=== PATIENT | female | born 1965 | race Caucasian/White ===

== ENCOUNTER 2017-05-27 06:38 | Day surgery (SDC) | payer OTHER ==
[2017-05-27] MEDS ORDERED: Propofol 200 MG/20 ML SDV IV ONE (06:39)
[2017-05-27] MEDS ORDERED: Lactated Ringers 1,000 ML IV SCH (06:45)
[2017-05-27] MEDS ORDERED: Sodium Chloride 0.9% 10 ML Syringe FLUSH PRN (06:45)
--- NOTE | 2017-05-27 08:14 | PCM.HPR ---
H & P Addendum review - H & P Addendum Review Date of Original H & P: 05/03/17 Date Reviewed: 05/27/17 Time Reviewed: 08:00 Patient was Examined: No Changes (ok to proceed with screening colonoscopy)
--- NOTE | 2017-05-27 09:02 | PCM.OPNOTE ---
- General Post-Op/Procedure Note Date of Surgery/Procedure: 05/27/17 Operative Procedure(s): Colonoscopy Findings: normal Pre Op Diagnosis: Colon Screening Post-Op Diagnosis: Same Anesthesia Technique: MAC Primary Surgeon: Ghassan Tierney Pathology: none Complications: None Condition: Good
--- NOTE | 2017-05-27 14:09 | OR ---
DATE OF OPERATION: 05/27/2017 SURGEON: Ghassan Tierney MD PREOPERATIVE DIAGNOSIS: Colon screening. POSTOPERATIVE DIAGNOSIS: Normal colonoscopy. PROCEDURE PERFORMED: Colonoscopy. ANESTHESIA: IV sedation. PROCEDURE IN DETAIL: The patient was brought to the procedure room, where she was placed on her left side and IV sedation administered. Digital rectal exam was performed, which was normal. The colonoscope was inserted and advanced to the level of the hepatic flexure without difficulty. At that time, there was significant looping and I was unable to advance farther. With pressure on the abdomen and changing to the supine position, I could advance into the ascending colon, and again could not advance farther. She is placed back on her left side and I was able to continue into the cecum, which was confirmed by identifying the appendiceal lumen and ileocecal valve. Prep was good and surfaces were well visualized. Upon withdrawing the scope, the ascending, transverse, and descending colon were normal other than being fairly tortuous. The sigmoid colon and rectum were normal. Retroflexion was normal. Air was removed and the scope withdrawn. The patient tolerated the procedure well and returned to recovery in stable condition. She has no family history of colon polyps or colon cancer and thus she can wait 10 years until her next colon screening. /[id number] [email or web address]/[email or web address] CC: Niurka Briceño DNP [facility]
== END 2017-05-27 10:24 | disposition home or self-care (01) ==
LOC: FB.SDS 06:38
PROVIDERS: ATTEND Surgery
DX: Z12.11 Encounter for screening for malignant neoplasm of colon (principal); I10 Essential (primary) hypertension; E78.5 Hyperlipidemia, unspecified; R73.03 Prediabetes; Z79.899 Other long term (current) drug therapy; Z98.51 Tubal ligation status; Z90.710 Acquired absence of both cervix and uterus; Z98.890 Other specified postprocedural states
CPT/HCPCS: 45378; J2704; J7120

== ENCOUNTER 2023-04-22 13:21 | Emergency (ER) | payer OTHER ==
[2023-04-22] MEDS: Ondansetron 4 MG Tab.DIS PO ONE (13:58)
[2023-04-22 14:16] LABS: BASOPHILS PERCENT AUTO 0.2 % (0.2-1.5); EOSINOPHILS PERCENT AUTO 0.1 % (0.6-8.1); HEMATOCRIT 38.4 % (34.2-48.2); HEMOGLOBIN 13.2 g/dL (11.4-15.5); LYMPHOCYTES ABSOLUTE AUTO 0.7 x10-3/uL (1.0-4.4); MEAN CORPUSCULAR HEMOGLOBIN 29.4 pg (23.9-33.9); MEAN CORPUSCULAR HGB CONC 34.3 g/dL (31.9-34.8); MEAN CORPUSCULAR VOLUME 85.8 fL (76.7-100.5); MEAN PLATELET VOLUME 7.3 fL (7.1-12.4); MONOCYTES ABSOLUTE AUTO 0.6 x10-3/uL (0.3-1.0); MONOCYTES PERCENT AUTO 9.9 % (4.4-15.7); NEUTROPHILS ABSOLUTE AUTO 4.8 x10-3/uL (1.5-6.3); NEUTROPHILS PERCENT AUTO 78.8 % (30.8-76.2); PLATELET COUNT,PLT 140 x10(3)uL (151-488); RED BLOOD CELL COUNT 4.48 x10(6)uL (3.60-5.20); WHITE BLOOD CELL COUNT,WBC 6.1 x10-3/uL (3.0-10.3)
[2023-04-22 14:19] LABS: BLOOD UREA NITROGEN,BUN 12 mg/dL (7-18); BUN/CREATININE RATIO 13.3 (9-20); CALCIUM 9.1 mg/dL (8.6-10.2); CARBON DIOXIDE,CO2 29 mmol/L (21-32); CHLORIDE,CL 95 mmol/L (100-110); CREATININE 0.9 mg/dL (0.55-1.02); EST CRCL DRUG DOSING (CG) 53.89 mL/min; ESTIMATED GFR 74 mL/min (>60); GLUCOSE RANDOM 101 mg/dL (80-116); POTASSIUM,K 3.6 mmol/L (3.5-5.3); SODIUM,NA 131 mmol/L (135-145)
== END 2023-04-22 15:02 | disposition home or self-care (01) ==
LOC: FB.ED 13:21
DX: L03.116 Cellulitis of left lower limb (principal); I10 Essential (primary) hypertension; E66.9 Obesity, unspecified; Z68.37 Body mass index [BMI] 37.0-37.9, adult; Z88.8 Allergy status to other drugs, medicaments and biological substances; Z79.899 Other long term (current) drug therapy; Z90.710 Acquired absence of both cervix and uterus
CPT/HCPCS: 36415; 80048; 85025; 99283; Q0162